=== PATIENT | male | born 1970 | race Caucasian/White ===

== ENCOUNTER 2017-06-23 16:57 | Emergency (ER) | payer OTHER ==
[2017-06-23 16:59] VITALS: BP 159/98; PULSE 110; RESP 20; TEMP 99; O2SAT 98
[2017-06-23 17:08] VITALS: TEMP 99.8
--- NOTE | 2017-06-23 17:25 | PD ---
HPI Chief Complaint: Injury Time Seen by Provider: 17:24 Travel History International Travel<30 days: No Contact w/Intl Traveler<30days: No Traveled to known affect area: No History of Present Illness HPI 46year-old male is no significant medical history presents to the department for evaluation of a painful swollen lesion on the volar aspect of his left hand. Patient states 1 week ago he was working when a drill went into the palm of his hand. He states he cleaned it out and things were going well but her last couple days he noticed it getting more swollen and painful. He stuck a needle in it today and purulent drainage came out. He has noticed red streaks going up his arm to his elbow. No limitations in range of motion. No alterations in sensation. No fever or chills. He is up-to-date on his tetanus vaccination. No other symptoms to report. [facility] Past Medical History Medical History: Denies Significant Hx Hypertension: Yes Past Surgical History Abdominal Surgery: Yes (hernia) Appendectomy: Yes Social History Alcohol Use: Yes Tobacco Use: Yes Substance Use: No Allergies-Medications (Allergen,Severity, Reaction): Coded Allergies: Sulfa (Verified Allergy, Mild, 06/23/17) Reported Meds & Prescriptions Reported Meds & Active Scripts Active Lortab (Hydrocodone-Acetaminophen) 5-325 Mg Tab 1 Tab PO Q6H PRN Naprosyn (Naproxen) 500 Mg Tab 500 Mg PO BID PRN Clindamycin (Clindamycin HCl) 150 Mg Cap 300 Mg PO Q6H 10 Days Review of Systems Except as stated in HPI: all other systems reviewed are Neg Physical Exam Narrative GENERAL: Well-nourished male patient, in no acute distress SKIN: Warm and dry. There is a 3 cm in diameter area on the palmar surface of the left hand that is fluctuant and draining purulent drainage. No induration. There is erythema streaks moving proximal to the left elbow from the site. HEAD: Normocephalic. Atraumatic EYES: No scleral icterus. No injection or drainage. NECK: Supple, trachea midline. No JVD or lymphadenopathy. CARDIOVASCULAR: Regular rate and rhythm without murmurs, gallops, or rubs. RESPIRATORY: Breath sounds equal bilaterally. No accessory muscle use. GASTROINTESTINAL: Abdomen soft, non-tender, nondistended. MUSCULOSKELETAL: No cyanosis. Patient is full flexion extension of the digits and wrist on the affected extremity. Distal pulses are palpable. Cap refill within normal limits. BACK: Nontender without obvious deformity. No CVA tenderness. Data Data Last Documented VS Vital Signs Date Time Temp Pulse Resp B/P Pulse Ox O2 Delivery O2 Flow Rate FiO2 06/23/17 17:08 99.8 06/23/17 16:59 110 20 159/98 98 Room Air Orders Hand, Complete ([id number]) (06/23/17 ) Clindamycin (Cleocin) (06/23/17 17:30) Ketorolac Inj (Toradol Inj) (06/23/17 17:30) Wound Culture And Gram Stain (06/23/17 17:19) Clindamycin Inj (Cleocin Inj) (06/23/17 17:30) Iv Access Insert/Monitor (06/23/17 17:19) Ketorolac Inj (Toradol Inj) (06/23/17 17:30) MDM Medical Decision Making Medical Screen Exam Complete: Yes Emergency Medical Condition: Yes Medical Record Reviewed: Yes Differential Diagnosis Cellulitis versus abscess versus tenosynovitis versus osteomyelitis versus lymphangitis versus sepsis Narrative Course 46-year-old male presents to emergency department for evaluation of an abscess on his left palm of his hand developed from a puncture wound 1 week ago. Patient appears without distress. His vital signs are stable. The area is leaking purulent drainage. Cultures obtained. I&D is completed the wound and patient is started on oral antibiotics. IV clindamycin is given here in the emergency department. I have counseled the patient on care and given strict instructions to return immediately with any acute worsening of symptoms. He agrees with this plan of care. Procedures Procedure Narrative After the risks and benefits were discussed the following procedure was performed: INCISION AND DRAINAGE OF ABSCESS: The area was prepped and was sterilely draped. Topical ethyl chloride was used to anesthetize the area. The area was properly anesthetized. A number 11 scalpel was used to make a 1-cm incision across the area of the abscess. Cultures were obtained. The abscess was drained an irrigated with normal saline. Quarter inch iodoform packing was placed in the wound. Sterile dressing applied. Patient advised to have packing removed in two days. Diagnosis Primary Impression: Abscess of left hand Additional Impression: Lymphangitis Referrals: Hand Surgeon Primary Care Physician Patient Instructions: Abscess Follow-up (ED), Abscess Incision and Drainage (ED ), General Instructions Departure Forms: Tests/Procedures, Work Release Enter return to work date: Jun 26, 2017 Additional Instructions: Elevate to reduce pain and swelling Remove packing in 2 days Start antibiotics in the morning and take until they are all gone Epsom salt soaks 2-3 times a day Return immediately with acute worsening of symptoms Med/Other Pt SpecificInfo: Prescription(s) given Scripts Hydrocodone-Acetaminophen (Lortab)5-325 Mg Tab1 Tab PO Q6H PRN (PAIN GREATER THAN 5) #6 TAB Ref 0 Prov:Marialuisa Camacho 06/23/17 Naproxen (Naprosyn)500 Mg [id number] Mg PO BID PRN (PAIN SCALE 1 TO 10) #30 TAB Ref 0 Prov:Marialuisa Camacho 06/23/17 Clindamycin 150 Mg [id number] Mg PO Q6H 10 Days Ref 0 Prov:Marialuisa Camacho 06/23/17 Disposition: 01 DISCHARGE HOME Condition: Stable Marialuisa Camacho Jun 23, 2017 17:24
[2017-06-23] MEDS ORDERED: KETOROLAC TROMETHAMINE 30 MG/ML (IVP) VIAL IV PUSH ONE (17:30)
[2017-06-23] MEDS ORDERED: KETOROLAC TROMETHAMINE 60 MG/2 ML (IM) VIAL IM ONE (17:30)
[2017-06-23] MEDS ORDERED: CLINDAMYCIN 150 MG CAP PO ONE (17:30)
[2017-06-23] MEDS ORDERED: CLINDAMYCIN INJ 900 MG in SODIUM CHLORIDE 0.9% INJ 100 ML IV ONE (17:30)
--- NOTE | 2017-06-23 17:42 | RADRPT ---
EXAM DATE/TIME: 06/23/2017 17:15 [place] COMPARISON: No previous studies available for comparison. INDICATIONS : Drilling roof hit hand with end of drillon anterior side of hand at base of first metacarpal. MEDICAL HISTORY : None. SURGICAL HISTORY : None. ENCOUNTER: Initial ACUITY: 1 day PAIN SCORE: 0/10 LOCATION: Left hand FINDINGS: 3 views left hand. Bone alignment within normal limits. No evidence of fracture. CONCLUSION: No evidence of fracture. Stalin Diez MD on June 23, 2017 at 17:38 Board Certified Radiologist. This report was verified electronically.
[2017-06-23] MEDS ORDERED: CLIN1CAP5 PO (18:13)
[2017-06-23] MEDS ORDERED: HYDR-3533 PO (18:13)
[2017-06-23] MEDS ORDERED: NAPR500 PO (18:13)
--- NOTE | 2017-06-23 18:47 | PD ---
Data Data Last Documented VS Vital Signs Date Time Temp Pulse Resp B/P Pulse Ox O2 Delivery O2 Flow Rate FiO2 06/23/17 17:08 99.8 06/23/17 16:59 110 20 159/98 98 Room Air Orders Hand, Complete ([id number]) (06/23/17 ) Clindamycin (Cleocin) (06/23/17 17:30) Ketorolac Inj (Toradol Inj) (06/23/17 17:30) Wound Culture And Gram Stain (06/23/17 17:19) Clindamycin Inj (Cleocin Inj) (06/23/17 17:30) Iv Access Insert/Monitor (06/23/17 17:19) Ketorolac Inj (Toradol Inj) (06/23/17 17:30) MDM Supervised Visit with YURIDIA: Yes Narrative Course The history, exam, and medical decision-making in the associated mid-level provider note were completed with my assistance. I reviewed and agree with the findings presented. I attest that I had a [id number] encounter with the patient on the same day, and personally performed and documented my assessment and findings in the medical record. *My assessment and Findings: 46-year-old man presents to the emergency department complaining of abscess in this a left hand with some lymphangitis. I don't think he has a flexor tenosynovitis. The abscess was drained. He is given a dose of IV antibiotics. Return for any worsening symptoms, continue clindamycin. Diagnosis Primary Impression: Abscess of left hand Additional Impression: Lymphangitis Referrals: Hand Surgeon Primary Care Physician Patient Instructions: General Instructions, Abscess Incision and Drainage (ED) , Abscess Follow-up (ED) Departure Forms: Work Release, Enter return to work date: Tests/Procedures Additional Instruction: Elevate to reduce pain and swelling Remove packing in 2 days Start antibiotics in the morning and take until they are all gone Epsom salt soaks 2-3 times a day Return immediately with acute worsening of symptoms Scripts Hydrocodone-Acetaminophen (Lortab)5-325 Mg Tab1 Tab PO Q6H PRN (PAIN GREATER THAN 5) #6 TAB Ref 0 Prov:Marialuisa Camacho 06/23/17 Naproxen (Naprosyn)500 Mg [id number] Mg PO BID PRN (PAIN SCALE 1 TO 10) #30 TAB Ref 0 Prov:Marialuisa Camacho 06/23/17 Clindamycin 150 Mg [id number] Mg PO Q6H 10 Days Ref 0 Prov:Marialuisa Camacho 06/23/17 Disposition: 01 DISCHARGE HOME Condition: Perico Torres MD Jun 23, 2017 18:47
== END 2017-06-23 18:53 | disposition home or self-care (01) ==
LOC: NEPE 16:57
DX: L02.512 Cutaneous abscess of left hand (principal); B95.61 Methicillin susceptible Staphylococcus aureus infection as the cause of diseases classified elsewhere; I89.1 Lymphangitis; Z72.0 Tobacco use
CPT/HCPCS: 10061; 73130; 86403; 87070; 87186; 96374; 96375; 99284; J1885; 87205